=== PATIENT | female | born 1965 | race Caucasian/White ===

== ENCOUNTER → 2017-12-23 | Outpatient (CLI) | payer BC, OTHER ==
[~2017-12-23] MED LIST: INVOKANA SC; LANTUS100 UNITS/ SC; LISINOPRIL10 MG PO; LOVASTATIN10 MG PO; METFORMIN HCL500 MG PO; VICTOZA 2-0.6 MG/0.1 SC; protonix PO; zofran PO
== END ==
LOC: MAMMO 13:20
PROVIDERS: ATTEND Internal Medicine
DX: Z12.31 Encounter for screening mammogram for malignant neoplasm of breast (principal)
CPT/HCPCS: 77067

== ENCOUNTER 2022-10-19 16:38 | Outpatient (RCR) | payer BC | END 2022-10-27 | LOC: PT 16:38 | PROVIDERS: ATTEND Physician Assistant | DX: S83.221D Peripheral tear of medial meniscus, current injury, right knee, subsequent encounter (principal); S83.411D Sprain of medial collateral ligament of right knee, subsequent encounter ==